=== PATIENT | male | born 1945 ===

== ENCOUNTER → 2024-06-13 | Outpatient (CLI) | payer MEDICARE ==
--- NOTE | 2024-06-13 08:36 | US ---
EXAMINATION TYPE: US abdomen comp/pelvis limited DATE OF EXAM: 06/13/2024 COMPARISON: NONE CLINICAL INDICATION: Male, 79 years old with history of R19.03 RIGHT LOWER QUADRANT ABDOMINAL SWELLIN G, MA; RUQ and RLQ pain x 2 months. TECHNIQUE: Grayscale color Doppler imaging of the abdomen and pelvis. FINDINGS: EXAM MEASUREMENTS: Liver Length: 12.9 cm Gallbladder Wall: 0.24 cm CBD: 0.67 cm Spleen: 10.6 cm Right Kidney: 11.4 x 6.4 x 5.7 cm Left Kidney: 11.6 x 3.9 x 4.9 cm Pancreas: parts seen appear wnl Liver: heterogeneous Gallbladder: singular gallstone seen near neck CBD: wnl Spleen: wnl Right Kidney: wnl Left Kidney: Cystic area seen near superior pole measuring 7.7 x 6.0 x 5.1 cm. Upper IVC: obscured by bowel gas Abd Aorta: mostly obscured by bowel gas Bladder: wnl Bilateral Jets Seen yes IMPRESSION: 1. Hepatic steatosis. 2. Cholelithiasis. [facility], , 06/13/2024 8:34 AM
== END | disposition home or self-care (01) ==
LOC: RADUSWWP 06:52
PROVIDERS: ATTEND Family Medicine
DX: K76.0 Fatty (change of) liver, not elsewhere classified (principal); K80.20 Calculus of gallbladder without cholecystitis without obstruction; Q61.9 Cystic kidney disease, unspecified
CPT/HCPCS: 76700; 76857

== ENCOUNTER → 2024-07-12 | Outpatient (CLI) | payer MEDICARE ==
[2024-07-12 10:32] LABS: African American GFR (CKD) 63 (>60 ml/min/1.73 sqM); Blood Urea Nitrogen 24 mg/dL (9-20); Non-African American GFR(CKD) 55 (>60 ml/min/1.73 sqM)
--- NOTE | 2024-07-12 11:28 | CT ---
EXAMINATION TYPE: CT abdomen wo/w con DATE OF EXAM: 07/12/2024 COMPARISON: None CLINICAL INDICATION: Male, 79 years old with history of R10.30 LOWER ABDOMINAL PAIN, UNSPECIFIED; PHH , Lower abdominal pain, pulling, mass/lump felt on RT side, marked by BB where patient feels it. TECHNIQUE: Performed with Oral Contrast and with IV Contrast, patient injected with 80 mL of Isovue 300. CT DLP: [address] CTDI: mGy Automated exposure control for dose reduction was used. FINDINGS: The lung bases are clear. The gallbladder is normal without distention, wall thickening, pericholecystic fluid or gallstones. T here is no biliary ductal dilatation. There is no focal mass or organomegaly involving the liver, pancreas, spleen or adrenal glands. There is no solid renal mass or hydronephrosis and there is homogeneous contrast enhancement of the r enal parenchyma. There is a 7 cm simple cortical cyst of the left kidney. The caliber the abdominal a jl is normal is no retroperitoneal adenopathy or hemorrhage. The bowel loops are normal in caliber and there is no evidence of dilatation or obstruction. No infla mmatory changes are identified in the bowel wall or mesentery. There is no free intraperitoneal air or fluid. No pelvic mass, free fluid, abscess or adenopathy. The osseous structures and soft tissues are intact. IMPRESSION: No acute changes within the abdomen. [facility], , 07/12/2024 11:25 AM
== END | disposition home or self-care (01) ==
LOC: RADCTMAIN 09:22
PROVIDERS: ATTEND Family Medicine
DX: R19.03 Right lower quadrant abdominal swelling, mass and lump (principal)
CPT/HCPCS: 82565; 84520; 74170; 36415; Q9967